=== PATIENT | female | born 1995 | race Caucasian/White ===

== ENCOUNTER 2018-05-28 12:54 | Emergency (ER) | payer MEDICAID ==
[~2018-05-28] VITALS: Ht 152.4 cm; Wt 60.8 kg
[2018-05-28 13:05] VITALS: Ht 152.4 cm; Wt 60.8 kg
[2018-05-28 14:06] VITALS: BP 123/73
== END 2018-05-28 14:01 | disposition home or self-care (01) ==
LOC: ED 12:54
DX: S16.1XXA Strain of muscle, fascia and tendon at neck level, initial encounter (principal); S06.0X0A Concussion without loss of consciousness, initial encounter; V49.40XA Driver injured in collision with unspecified motor vehicles in traffic accident, initial encounter; Y93.89 Activity, other specified; Y92.488 Other paved roadways as the place of occurrence of the external cause; Y99.8 Other external cause status
CPT/HCPCS: J1885